=== PATIENT | male | born 1990 | race African-American/Black ===

== ENCOUNTER 2018-02-26 13:55 | Emergency (ER) | payer SELFPAY ==
[~2018-02-26 13:55] MED LIST: FOSPHENYTOIN IV ONE; FOSPHENYTOIN SODIUM 500 MG/10 ML VIAL IV ONE; NORMAL SALINE 500 ML IV.SOLN IV ONE
[2018-02-26] MEDS ORDERED: LORazepam 2 MG/ML VIAL IVP ONE (14:04)
[2018-02-26] MEDS ORDERED: SUCCINYLCHOLINE CHLORIDE 20 MG/ML 10ML VIAL IVP ONE (14:06)
[2018-02-26] MEDS ORDERED: ROCURONIUM BROMIDE 10 MG/ML 5ML VIAL IVP ONE ×2 (14:21→14:55)
[2018-02-26] MEDS ORDERED: MIDAZOLAM HCL 2 MG/2 ML VIAL IVP ONE ×2 (14:31→14:55)
[2018-02-26 14:33] LABS: MEAN CORPUSCULAR HEMOGLOBIN 25.8 pg (28.0-34.0)
[2018-02-26] MEDS ORDERED: FOSPHENYTOIN IV ONE (14:33)
--- NOTE | 2018-02-26 14:33 | Diagnostic Imaging Report ---
ALEJANDRINA CORMIER [facility] [address] [facility] [address] [place], [place]. 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 PRE AND POST INTUBATION. PATIENT UNRESPONSIVE. RECENT UPPER RESPIRATORY INFECTION WITH ANTIBIOTIC THERAPY. (Hx) Comparison exam: None provided. Findings: Two single views of the chest presented for interpretation. Lung naranjo without focal infiltrate. No blunting of the costophrenic margins. 2nd image demonstrates placement of an endotracheal tube: tip 4.7 cm above the alana. Osseous structures are appropriate for age. Impression: No acute pulmonary process. Endotracheal tube: tip 4.7 cm above the alana. Electronically signed on Feb 26, 2018 2:32:06 PM OPTICAL INSTRUMENT ASSEMBLER by: Gonzalo DELAROSA
--- NOTE | 2018-02-26 14:37 | ED Physician Documentation ---
General Adult - HISTORIAN Historian: patient - HPI Stated Complaint: unresponsive Chief Complaint: General Adult Onset: other (per EMS he was found unresponsive via a friend or work. He was started on a new med last week for URI and they were concerned it was a med reaction . He was given one dose of Epi and benadryl in the ambulance. He had what appeared to be seizure like activity in the ambulance so they then gave him Narcan and Versed along with 4 mg of zofran. They attempted to intubate him but could not pass the tube so they did have him on a non rebreather mask with ) Timing: still present Severity: mild Further Comments: yes (he arrived on site with non rebreather mask and non responsive. Tense jaw and incontinent of bowel and bladder. No response to pain.) Last known Well Code/Unknown Code: Unknown - ROS CONST: no problems, recent illness (URI last week ). denies: fever MS/SKIN/LYMPH: none - PAST HX Past History: asthma Immunizations: other (Unknown ) - SOCIAL HX Smoking History: other (MENTASTA ) - FAMILY HX Family History: No (MENTASTA ) - REVIEWED ASSESSMENTS Nursing Assessment Reviewed: Yes Vitals Reviewed: Yes Progress - Progress Progress: 1420: [facility] will call with accepting DG 1430 : secondary survey completed with no new findings DG 1450 Dr Cole at [facility] accepting 1455: Mom at bedside DG ED Results Lab/Radiology - Orders Orders: ED Orders Category Date Time Status CHEST 1VIEW [RAD] Stat Exams 02/26/18 Completed CBC/PLATELET/DIFF Routine Lab 02/26/18 14:25 Received CKMB Stat Lab 02/26/18 14:25 Received CMP Routine Lab 02/26/18 14:25 Received TROPONIN I (cTnI) Stat Lab 02/26/18 14:25 Received General Adult Physical Exam - PHYSICAL EXAM GENERAL APPEARANCE: moderate distress (resp) EENT: dry mucous membranes RESPIRATORY: rhonchi, other (mod resp distress tracheal tug 1409: post intubation bilateral air movement both lung naranjo - Monitor readings normal ) CVS: reg rate & rhythm, heart sounds normal, no murmur ABDOMEN: soft, no distension SKIN: warm/dry, normal color EXTREMITIES: non-tender NEURO: other (does not respond to painful stimuli due to previously medicated. Once medication was wearing off he would appear to respond with some physical signs of pain response via eye squinting and attempt to move hands and arms. No response to verbal stimuli . Pupils pinpoint without repsonse. He had tremoring at the jaw line bilateral with resolution post cerebreyx. ) Discharge Clincal Impression: Unresponsive Referrals: Primary Doctor,Nelsy [Primary Care Provider] - 2 Days Condition: Critical Disposition: 02 XFER [facility]HT-TRM HOSP Decision to Admit: NO Date of Decison to Admit: 02/26/18 Decision Time: 14:50
[2018-02-26 14:45] LABS: eGFR (Non-African) > 60
[2018-02-26 14:54] LABS: BASOPHILS % 0 % (0-2); EOSINOPHILS % 9 % (0-7); MONOCYTES % 3 % (0-11); SEGMENTED NEUTROPHILS % 68 % (39-79)
[2018-02-26] MEDS ORDERED: FOSPHENYTOIN SODIUM IV STA (15:10)
[2018-02-26] MEDS ORDERED: SODIUM CHLORIDE 0.9% IV STA (15:10)
[2018-02-26 15:57] LABS: ABG BASE EXCESS 25.2 (-2 - +2); ABG PH 7.23 (7.35-7.45)
[2018-02-26] MEDS ORDERED: 0.9 % SODIUM CHLORIDE 1,000 ML IV ONE (15:58)
[2018-02-26 16:58] VITALS: BP 108/66
== END 2018-02-26 15:15 | disposition short-term general hospital (02) ==
LOC: ED 13:55 → EDBD 13:55 → ED 15:15
DX: R41.89 Other symptoms and signs involving cognitive functions and awareness (principal)
CPT/HCPCS: 36415; 36600; 51702; 71045; 80053; 82550; 82553; 82803; 84484; 85025; 93005; 96374; 96375; 99285; J0330; J2060; J2250; J7030; Q2009; 31500; 96376; 99284; S1016